=== PATIENT | male | born 1990 | race American Indian/Alaskan Native ===

== ENCOUNTER 2021-11-24 19:21 | Emergency (ER) | payer OTHER ==
[2021-11-24 20:48] VITALS: BP 124/75
[2021-11-24] MEDS ORDERED: LIDOCAINE-MPF (1%) 10 MG/1 ML VIAL 5 ML INFILTRATI ONE (20:51)
[2021-11-24] MEDS ORDERED: IBUPROFEN 600 MG TAB PO ONE (20:51)
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
== END 2021-11-24 22:30 | disposition home or self-care (01) ==
LOC: ED 19:21
DX: S51.012A Laceration without foreign body of left elbow, initial encounter (principal); S51.032A Puncture wound without foreign body of left elbow, initial encounter; Y08.89XA Assault by other specified means, initial encounter; Y93.89 Activity, other specified; Y92.89 Other specified places as the place of occurrence of the external cause; Y99.8 Other external cause status
CPT/HCPCS: 12032; 99282; J3490

== ENCOUNTER 2021-12-13 23:35 | Emergency (ER) | payer OTHER ==
[2021-12-13 23:53] VITALS: BP 134/83
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
== END 2021-12-14 01:38 | disposition home or self-care (01) ==
LOC: ED 23:35
DX: S51.012D Laceration without foreign body of left elbow, subsequent encounter (principal); X58.XXXD Exposure to other specified factors, subsequent encounter; Z48.02 Encounter for removal of sutures; Z88.6 Allergy status to analgesic agent